=== PATIENT | female | born 1940 | race Two or more races ===

== ENCOUNTER 2023-09-10 18:02 | Emergency (ER) | payer MEDICARE, MEDICAID ==
[~2023-09-10] VITALS: Ht 147.3 cm; Wt 48.6 kg
[2023-09-10] MEDS: MORPHINE SULFATE 4 MG/ML SYR/VIAL IV ONE (19:06)
[2023-09-10 19:10] VITALS: PULSE 74; RESP 18; O2SAT 98
[2023-09-10 20:01] VITALS: PULSE 73; RESP 13; TEMP 97.9; O2SAT 99
[2023-09-10] MEDS ORDERED: MORP15TA PO (20:04)
[2023-09-10 20:56] VITALS: BP 137/89; PULSE 95; RESP 14; O2SAT 96
== END 2023-09-10 20:55 | disposition home or self-care (01) ==
LOC: ER 18:02
DX: S42.211A Unspecified displaced fracture of surgical neck of right humerus, initial encounter for closed fracture (principal); I10 Essential (primary) hypertension; W01.0XXA Fall on same level from slipping, tripping and stumbling without subsequent striking against object, initial encounter; Y93.89 Activity, other specified; Y92.89 Other specified places as the place of occurrence of the external cause; Y99.8 Other external cause status
CPT/HCPCS: 73030; 73060; 73080; 96374; 99284; J2270